=== PATIENT | female | born 1940 | race Caucasian/White ===

== ENCOUNTER 2017-01-09 23:19 | Inpatient (IN) | payer OTHER ==
[~2017-01-09] VITALS: Ht 162.6 cm; Wt 82.0 kg
[~2017-01-09 23:19] MED LIST: BISA10SU54 PR; CYCL-259 PO; DESL5TAB PO; DESO15OI TP; FLUO15CR TP; FURO-92 PO; FURO40TA6 PO; GABA100C8 PO; HYDR28OI3 TP; LIDOCAINE TP; LOSA25TA5 PO; MAGN400O4 PO; MECL12.5 PO; METF-649 PO; METF500T4 PO; OMEP40CA6 PO; OXYC-302 PO; POTA10TA11 PO; SENN-1 PO; TRAZ100T15 PO; TRAZ50TA18 PO; TRIA15OI10 TP; VENL75TA PO; [UNRECOGNIZED DRUG - OTHER]; lasix PO; trazodone PO
[2017-01-10] MEDS ORDERED: SODIUM CHLORIDE FLUSH 10ML SYR IVF ONE
[2017-01-10] MEDS ORDERED: SODIUM CHLORIDE 0.9% 1,000ML IVBOLUS ONE
[2017-01-10 01:19] LABS: ASPARTATE AMINO TRANSFERASE 23 U/L (15-37); BLOOD UREA NITROGEN 19 mg/dL (7-18)
[2017-01-10 01:25] LABS: IS PT STATUS REG ER OR PRE ER? YES
[2017-01-10] MEDS ORDERED: CEFTRIAXONE 1,000 MG in SODIUM CHLORIDE 0.9% 50 ML IV ONE (02:00)
[2017-01-10] MEDS: SODIUM CHLORIDE 0.9% 1,000 ML IV SCH ×2 (02:11→16:21)
[2017-01-10] MEDS ORDERED: CEFTRIAXONE 1,000 MG in SODIUM CHLORIDE 0.9% 50 ML IV SCH (02:30)
[2017-01-10 03:21] VITALS: BP 114/75
[2017-01-10] MEDS: ENOXAPARIN 40 MG/0.4 ML SQ SCH (04:17)
[2017-01-10] MEDS: INSULIN ASPART 100 UNITS/ML, PEN SQ-INSULIN SCH ×4 (08:36→21:00)
[2017-01-10 08:41] VITALS: BP 107/67
[2017-01-10] MEDS: SENNA/DOCUSATE TABLET PO SCH (08:45)
[2017-01-10] MEDS: VENLAFAXINE 75MG TABLET PO SCH ×2 (08:45→23:13)
[2017-01-10] MEDS: POTASSIUM CHLORIDE 20 MEQ TAB.ER.PRT PO SCH (08:45)
[2017-01-10] MEDS: OMEPRAZOLE 20 MG CAPSULE.DR PO SCH (08:46)
[2017-01-10] MEDS: CEFTRIAXONE 1,000 MG in SODIUM CHLORIDE 0.9% 50 ML IV SCH (14:12)
[2017-01-10 14:25] VITALS: BP 113/68
[2017-01-10 15:00] VITALS: BP 116/75
[2017-01-10] MEDS: OXYcodone/APAP 5/325MG TABLET PO PRN ×2 (16:41→23:17)
[2017-01-10 22:00] VITALS: BP 97/62
[2017-01-10] MEDS: GABAPENTIN 100 MG CAPSULE PO SCH (23:13)
[2017-01-11] MEDS: SODIUM CHLORIDE 0.9% 1,000 ML IV SCH (02:00)
[2017-01-11] MEDS: CEFTRIAXONE 1,000 MG in SODIUM CHLORIDE 0.9% 50 ML IV SCH ×2 (02:40→16:35)
[2017-01-11] MEDS: ENOXAPARIN 40 MG/0.4 ML SQ SCH (02:42)
[2017-01-11 02:45] VITALS: BP 115/75
[2017-01-11 06:27] LABS: BLOOD UREA NITROGEN 13 mg/dL (7-18)
[2017-01-11] MEDS: INSULIN ASPART 100 UNITS/ML, PEN SQ-INSULIN SCH ×4 (07:00→21:00)
[2017-01-11 08:41] VITALS: BP 118/72
[2017-01-11] MEDS: VENLAFAXINE 75MG TABLET PO SCH ×2 (08:43→23:02)
[2017-01-11] MEDS: POTASSIUM CHLORIDE 20 MEQ TAB.ER.PRT PO SCH (08:43)
[2017-01-11] MEDS: OXYcodone/APAP 5/325MG TABLET PO PRN ×3 (08:43→23:16)
[2017-01-11] MEDS: OMEPRAZOLE 20 MG CAPSULE.DR PO SCH (08:43)
[2017-01-11] MEDS: SENNA/DOCUSATE TABLET PO SCH (08:43)
[2017-01-11] MEDS ORDERED: OMNIPAQUE 350 MG/ML, 150 ML BOTTLE ONE (10:12)
[2017-01-11 13:21] VITALS: BP 130/79
[2017-01-11] MEDS ORDERED: MAGNESIUM SULFATE PMX 2GM/50ML 50 ML IV ONE (17:30)
[2017-01-11 20:00] VITALS: BP 122/78
[2017-01-11] MEDS: GABAPENTIN 100 MG CAPSULE PO SCH (23:02)
[2017-01-12 01:55] VITALS: BP 101/64
[2017-01-12] MEDS: CEFTRIAXONE 1,000 MG in SODIUM CHLORIDE 0.9% 50 ML IV SCH (02:30)
[2017-01-12] MEDS: ENOXAPARIN 40 MG/0.4 ML SQ SCH (02:30)
[2017-01-12] MEDS: INSULIN ASPART 100 UNITS/ML, PEN SQ-INSULIN SCH ×4 (07:00→21:00)
[2017-01-12 07:07] VITALS: BP 127/80
[2017-01-12] MEDS: OMEPRAZOLE 20 MG CAPSULE.DR PO SCH (09:41)
[2017-01-12] MEDS: SENNA/DOCUSATE TABLET PO SCH (09:42)
[2017-01-12] MEDS: POTASSIUM CHLORIDE 20 MEQ TAB.ER.PRT PO SCH (09:42)
[2017-01-12] MEDS: VENLAFAXINE 75MG TABLET PO SCH ×2 (09:42→21:07)
[2017-01-12 14:00] VITALS: BP 113/74
[2017-01-12] MEDS: AMPICILLIN/SULBACTAM 3 GM in SODIUM CHLORIDE 0.9% 100 ML IV SCH (15:57)
[2017-01-12] MEDS: OXYcodone/APAP 5/325MG TABLET PO PRN (17:19)
[2017-01-12 19:02] VITALS: BP 109/71
[2017-01-12] MEDS: GABAPENTIN 100 MG CAPSULE PO SCH (21:07)
[2017-01-13] MEDS: AMPICILLIN/SULBACTAM 3 GM in SODIUM CHLORIDE 0.9% 100 ML IV SCH ×3 (00:30→17:45)
[2017-01-13 01:13] VITALS: BP 133/83
[2017-01-13] MEDS: OXYcodone/APAP 5/325MG TABLET PO PRN ×3 (01:24→21:08)
[2017-01-13] MEDS: ENOXAPARIN 40 MG/0.4 ML SQ SCH (01:25)
[2017-01-13 04:22] LABS: BLOOD UREA NITROGEN 12 mg/dL (7-18)
[2017-01-13 06:58] VITALS: BP 131/85
[2017-01-13] MEDS: INSULIN ASPART 100 UNITS/ML, PEN SQ-INSULIN SCH ×4 (07:00→21:08)
[2017-01-13] MEDS: SENNA/DOCUSATE TABLET PO SCH (09:00)
[2017-01-13] MEDS: POTASSIUM CHLORIDE 20 MEQ TAB.ER.PRT PO SCH (09:55)
[2017-01-13] MEDS: VENLAFAXINE 75MG TABLET PO SCH ×2 (09:55→21:08)
[2017-01-13] MEDS: OMEPRAZOLE 20 MG CAPSULE.DR PO SCH (09:55)
[2017-01-13] MEDS: ONDANSETRON 2MG/ML, 2ML IVPush PRN ×2 (10:03→21:08)
[2017-01-13 16:34] VITALS: BP 112/73
[2017-01-13 18:55] VITALS: BP 102/66
[2017-01-13] MEDS: GABAPENTIN 100 MG CAPSULE PO SCH (21:08)
[2017-01-14 01:25] VITALS: BP 123/76
[2017-01-14] MEDS: AMPICILLIN/SULBACTAM 3 GM in SODIUM CHLORIDE 0.9% 100 ML IV SCH ×2 (01:56→09:36)
[2017-01-14] MEDS: ENOXAPARIN 40 MG/0.4 ML SQ SCH (01:56)
[2017-01-14] MEDS: OXYcodone/APAP 5/325MG TABLET PO PRN (03:51)
[2017-01-14] MEDS: INSULIN ASPART 100 UNITS/ML, PEN SQ-INSULIN SCH ×4 (07:00→21:00)
[2017-01-14] MEDS: POTASSIUM CHLORIDE 20 MEQ TAB.ER.PRT PO SCH (07:19)
[2017-01-14] MEDS: SENNA/DOCUSATE TABLET PO SCH (07:20)
[2017-01-14] MEDS: VENLAFAXINE 75MG TABLET PO SCH ×2 (07:20→21:07)
[2017-01-14] MEDS: OMEPRAZOLE 20 MG CAPSULE.DR PO SCH (07:20)
[2017-01-14 07:37] VITALS: BP 119/69
[2017-01-14 14:11] VITALS: BP 119/72
[2017-01-14] MEDS ORDERED: BISACODYL 10 MG SUPP PR PRN (17:00)
[2017-01-14] MEDS: POLYETHYLENE GLYCOL 17 GM PACKET PO SCH (17:57)
[2017-01-14 19:09] VITALS: BP 144/84
[2017-01-14] MEDS: AMOXICILLIN/CLAV 875-125MG TABLET PO SCH (21:04)
[2017-01-14] MEDS: GABAPENTIN 100 MG CAPSULE PO SCH (21:05)
[2017-01-15 01:30] VITALS: BP 144/74
[2017-01-15] MEDS: ENOXAPARIN 40 MG/0.4 ML SQ SCH (01:56)
[2017-01-15 06:00] LABS: BLOOD UREA NITROGEN 13 mg/dL (7-18)
[2017-01-15] MEDS: INSULIN ASPART 100 UNITS/ML, PEN SQ-INSULIN SCH ×3 (07:00→17:35)
[2017-01-15 07:13] VITALS: BP 126/77
[2017-01-15] MEDS: OMEPRAZOLE 20 MG CAPSULE.DR PO SCH (08:56)
[2017-01-15] MEDS: VENLAFAXINE 75MG TABLET PO SCH (08:56)
[2017-01-15] MEDS: AMOXICILLIN/CLAV 875-125MG TABLET PO SCH (08:56)
[2017-01-15] MEDS: POTASSIUM CHLORIDE 20 MEQ TAB.ER.PRT PO SCH (08:56)
[2017-01-15] MEDS: POLYETHYLENE GLYCOL 17 GM PACKET PO SCH (08:57)
[2017-01-15] MEDS: SENNA/DOCUSATE TABLET PO SCH (08:57)
[2017-01-15] MEDS ORDERED: AMOX1TAB12 PO (10:09)
[2017-01-15 13:56] VITALS: BP 118/73
== END 2017-01-15 18:30 | DRG 563 ==
LOC: ED 01-10 01:56 → 5SO 01-10 01:57 → ED 01-10 03:00 → 3NE 01-12 13:48
PROVIDERS: ADMIT Internal Medicine
PROC: 0T9B70Z Drainage of Bladder with Drainage Device, Via Natural or Artificial Opening (ICD-10-PCS; principal; 2017-01-10)
DX: S82.52XA Displaced fracture of medial malleolus of left tibia, initial encounter for closed fracture (principal); N39.0 Urinary tract infection, site not specified; J98.11 Atelectasis; D70.9 Neutropenia, unspecified; E86.0 Dehydration; H02.401 Unspecified ptosis of right eyelid; I10 Essential (primary) hypertension; D64.9 Anemia, unspecified; D69.6 Thrombocytopenia, unspecified; E11.9 Type 2 diabetes mellitus without complications; G89.11 Acute pain due to trauma; G89.4 Chronic pain syndrome; H02.402 Unspecified ptosis of left eyelid; M19.90 Unspecified osteoarthritis, unspecified site; B95.2 Enterococcus as the cause of diseases classified elsewhere; W01.0XXA Fall on same level from slipping, tripping and stumbling without subsequent striking against object, initial encounter; I25.2 Old myocardial infarction; Y93.89 Activity, other specified; Y92.009 Unspecified place in unspecified non-institutional (private) residence as the place of occurrence of the external cause; Z86.73 Personal history of transient ischemic attack (TIA), and cerebral infarction without residual deficits; C67.3 Malignant neoplasm of anterior wall of bladder; K57.30 Diverticulosis of large intestine without perforation or abscess without bleeding; N28.1 Cyst of kidney, acquired
CPT/HCPCS: 36415; 71010; 73523; 74178; 76770; 80048; 80053; 81001; 82962; 83036; 83735; 83880; 84443; 84484; 85025; 87077; 87086; 87186; 93005; J0295; J0696; J1650; J1815; J2405; Q9967; J3475; J7030

== ENCOUNTER 2017-02-04 04:45 | Inpatient (IN) | payer OTHER ==
[~2017-02-04] VITALS: Ht 162.6 cm; Wt 74.9 kg
[~2017-02-04 04:45] MED LIST changes: +AMOX1TAB12 PO; +GABA-826 PO; -GABA100C8 PO
[2017-02-04] MEDS ORDERED: SODIUM CHLORIDE 0.9% 1,000 ML IV ONE ×2 (04:59→10:21)
[2017-02-04] MEDS ORDERED: SODIUM CHLORIDE FLUSH 10ML SYR IVF ONE (05:00)
[2017-02-04 06:42] LABS: ASPARTATE AMINO TRANSFERASE 99 U/L (15-37); BLOOD UREA NITROGEN 19 mg/dL (7-18)
[2017-02-04] MEDS ORDERED: ONDANSETRON 2MG/ML, 2ML ONE (07:19)
[2017-02-04] MEDS ORDERED: HYDROmorphone 1 MG/ML, 1ML ONE (07:19)
[2017-02-04 07:22] LABS: DIFF TOTAL CELLS COUNTED 100 CELL DIFF
[2017-02-04 07:27] LABS: ANISOCYTOSIS 1+; MICROCYTOSIS 1+; VERIFY COUNTS? YES
[2017-02-04 07:28] LABS: HYPOCHROMIA 1+
[2017-02-04 07:29] LABS: OVALOCYTES 1+
[2017-02-04] MEDS ORDERED: ONDANSETRON 2MG/ML, 2ML IVPush ONE (07:30)
[2017-02-04] MEDS ORDERED: HYDROmorphone 1 MG/ML, 1ML IVPush PRN (07:30)
[2017-02-04] MEDS ORDERED: SODIUM CHLORIDE FLUSH 10ML SYR IVF PRN (10:30)
[2017-02-04] MEDS ORDERED: POTASSIUM CHLORIDE 20 MEQ TAB.ER.PRT PO ONE ×2 (11:00→13:00)
[2017-02-04] MEDS ORDERED: POTASSIUM CHLORIDE 20 MEQ TAB.ER.PRT ONE (11:13)
[2017-02-04] MEDS ORDERED: GUAIFENESIN/DM 200-20MG, 10ML UDC PO PRN (12:30)
[2017-02-04] MEDS ORDERED: morphine SULFATE 10 MG/ML, 1ML IVPush PRN (12:30)
[2017-02-04] MEDS ORDERED: hydrALAzine 20 MG/ML, 1ML IVPush PRN (12:30)
[2017-02-04] MEDS ORDERED: DOCUSATE 100 MG CAPSULE PO PRN (12:30)
[2017-02-04] MEDS ORDERED: ACETAMINOPHEN 325 MG TABLET PO PRN (12:30)
[2017-02-04] MEDS ORDERED: ONDANSETRON 2MG/ML, 2ML IVPush PRN (12:30)
[2017-02-04] MEDS: SODIUM CHLORIDE 0.9% 1,000 ML IV SCH ×2 (12:59→22:35)
[2017-02-04 13:00] VITALS: BP 122/76
[2017-02-04 13:30] VITALS: BP 114/75
[2017-02-04] MEDS ORDERED: HEPARIN 5,000 UNITS/ML, 1ML SQ SCH (13:30)
[2017-02-04] MEDS: OMEPRAZOLE 20 MG CAPSULE.DR PO SCH (14:19)
[2017-02-04] MEDS: OXYcodone/APAP 5/325MG TABLET PO PRN ×3 (14:20→20:06)
[2017-02-04] MEDS: INSULIN ASPART 100 UNITS/ML, PEN SQ-INSULIN SCH ×2 (16:00→20:10)
[2017-02-04 19:04] VITALS: BP 98/51
[2017-02-04] MEDS: GABAPENTIN 100 MG CAPSULE PO SCH (20:02)
[2017-02-04] MEDS: TRAZODONE 100MG TABLET PO SCH (20:05)
[2017-02-04] MEDS: VENLAFAXINE 75MG TABLET PO SCH (20:05)
[2017-02-05] MEDS: OXYcodone/APAP 5/325MG TABLET PO PRN ×5 (00:44→22:06)
[2017-02-05] MEDS: SODIUM CHLORIDE 0.9% 1,000 ML IV SCH ×2 (06:20→17:04)
[2017-02-05 06:36] LABS: BLOOD UREA NITROGEN 18 mg/dL (7-18)
[2017-02-05] MEDS: INSULIN ASPART 100 UNITS/ML, PEN SQ-INSULIN SCH ×4 (07:00→21:00)
[2017-02-05 08:07] VITALS: BP 98/65
[2017-02-05] MEDS ORDERED: MAGNESIUM SULFATE PMX 4GM/100M 100 ML IV ONE (09:00)
[2017-02-05] MEDS: VENLAFAXINE 75MG TABLET PO SCH ×2 (09:24→20:54)
[2017-02-05] MEDS: OMEPRAZOLE 20 MG CAPSULE.DR PO SCH (09:24)
[2017-02-05] MEDS: IRON SUCROSE COMPLEX 100MG/5ML IV SCH (12:27)
[2017-02-05 13:39] VITALS: BP 107/64
[2017-02-05 19:02] VITALS: BP 112/71
[2017-02-05] MEDS: TRAZODONE 100MG TABLET PO SCH (20:54)
[2017-02-05] MEDS: GABAPENTIN 100 MG CAPSULE PO SCH (20:54)
[2017-02-06 01:05] VITALS: BP 104/54
[2017-02-06] MEDS: SODIUM CHLORIDE 0.9% 1,000 ML IV SCH ×2 (01:28→09:07)
[2017-02-06] MEDS: OXYcodone/APAP 5/325MG TABLET PO PRN ×5 (02:00→23:49)
[2017-02-06 05:39] LABS: BLOOD UREA NITROGEN 10 mg/dL (7-18)
[2017-02-06 05:50] LABS: DIFF TOTAL CELLS COUNTED 50 CELL DIFFERENTIAL; VERIFY COUNTS? YES
[2017-02-06 05:52] LABS: ANISOCYTOSIS 1+; MICROCYTOSIS 1+
[2017-02-06 07:00] VITALS: BP 112/70
[2017-02-06] MEDS: INSULIN ASPART 100 UNITS/ML, PEN SQ-INSULIN SCH ×4 (07:00→21:00)
[2017-02-06] MEDS: MECLIZINE 12.5 MG TABLET PO PRN (09:07)
[2017-02-06] MEDS: OMEPRAZOLE 20 MG CAPSULE.DR PO SCH (09:07)
[2017-02-06] MEDS: VENLAFAXINE 75MG TABLET PO SCH ×2 (09:07→21:09)
[2017-02-06 12:00] VITALS: BP 98/62
[2017-02-06] MEDS: IRON SUCROSE COMPLEX 100MG/5ML IV SCH (12:10)
[2017-02-06] MEDS ORDERED: SODIUM CHLORIDE 0.9% 1,000 ML IV SCH (12:28)
[2017-02-06] MEDS: NEUTRA PHOS K 250 MG TABLET PO SCH ×3 (14:44→21:08)
[2017-02-06 18:46] VITALS: BP 110/67
[2017-02-06] MEDS: TRAZODONE 100MG TABLET PO SCH (21:08)
[2017-02-06] MEDS: GABAPENTIN 100 MG CAPSULE PO SCH (21:08)
[2017-02-07 01:21] VITALS: BP 118/69
[2017-02-07 04:59] LABS: BLOOD UREA NITROGEN 10 mg/dL (7-18)
[2017-02-07 05:52] LABS: DIFF TOTAL CELLS COUNTED 100 CELL DIFF
[2017-02-07 06:07] LABS: ANISOCYTOSIS 1+; VERIFY COUNTS? YES
[2017-02-07 06:08] LABS: MICROCYTOSIS 1+; OVALOCYTES 1+
[2017-02-07] MEDS: INSULIN ASPART 100 UNITS/ML, PEN SQ-INSULIN SCH (07:00)
[2017-02-07 08:08] VITALS: BP 113/67
[2017-02-07] MEDS: OXYcodone/APAP 5/325MG TABLET PO PRN ×2 (09:04→20:11)
[2017-02-07] MEDS: OMEPRAZOLE 20 MG CAPSULE.DR PO SCH (09:05)
[2017-02-07] MEDS: NEUTRA PHOS K 250 MG TABLET PO SCH ×2 (09:05→16:06)
[2017-02-07] MEDS: VENLAFAXINE 75MG TABLET PO SCH ×2 (09:05→20:07)
[2017-02-07] MEDS: MECLIZINE 12.5 MG TABLET PO PRN (09:05)
[2017-02-07] MEDS ORDERED: MAGNESIUM SULFATE PMX 4GM/100M 100 ML IV ONE (11:00)
[2017-02-07] MEDS ORDERED: FUROSEMIDE 20 MG/2 ML IV ONE (11:00)
[2017-02-07] MEDS ORDERED: BISACODYL 10 MG SUPP ONE (11:14)
[2017-02-07] MEDS ORDERED: BISACODYL 10 MG SUPP PR PRN (11:30)
[2017-02-07] MEDS ORDERED: POTASSIUM PHOSPHATE 44 MEQ in SODIUM CHLORIDE 0.9% 500 ML IV ONE (11:30)
[2017-02-07] MEDS: IRON SUCROSE COMPLEX 100MG/5ML IV SCH (11:47)
[2017-02-07 13:59] VITALS: BP 100/64
[2017-02-07 17:08] LABS: OCCBLD OBC PASS
[2017-02-07 18:46] VITALS: BP 123/76
[2017-02-07] MEDS: GABAPENTIN 100 MG CAPSULE PO SCH (20:06)
[2017-02-07] MEDS: TRAZODONE 100MG TABLET PO SCH (20:07)
[2017-02-08 00:57] VITALS: BP 123/75
[2017-02-08 05:14] LABS: BLOOD UREA NITROGEN 11 mg/dL (7-18)
[2017-02-08 06:02] LABS: DIFF TOTAL CELLS COUNTED 100 CELL DIFF
[2017-02-08 06:05] LABS: ANISOCYTOSIS 1+; MICROCYTOSIS 1+; OVALOCYTES 1+
[2017-02-08 06:35] LABS: VERIFY COUNTS? YES
[2017-02-08 07:01] VITALS: BP 98/63
[2017-02-08] MEDS: VENLAFAXINE 75MG TABLET PO SCH ×2 (08:20→21:39)
[2017-02-08] MEDS: OMEPRAZOLE 20 MG CAPSULE.DR PO SCH (08:20)
[2017-02-08] MEDS: NEUTRA PHOS K 250 MG TABLET PO SCH ×3 (09:00→21:39)
[2017-02-08] MEDS ORDERED: FUROSEMIDE 40 MG/4 ML IV ONE (09:30)
[2017-02-08 14:06] VITALS: BP 120/76
[2017-02-08] MEDS: HEPARIN 5,000 UNITS/ML, 1ML SQ SCH (16:58)
[2017-02-08 19:27] VITALS: BP 108/69
[2017-02-08] MEDS: TRAZODONE 100MG TABLET PO SCH (21:39)
[2017-02-08] MEDS: GABAPENTIN 100 MG CAPSULE PO SCH (21:39)
[2017-02-09 01:49] VITALS: BP 113/61
[2017-02-09] MEDS: HEPARIN 5,000 UNITS/ML, 1ML SQ SCH ×3 (02:01→18:23)
[2017-02-09 06:16] LABS: BLOOD UREA NITROGEN 9 mg/dL (7-18)
[2017-02-09 07:31] LABS: DIFF TOTAL CELLS COUNTED 100 CELL DIFF
[2017-02-09 07:37] LABS: VERIFY COUNTS? YES
[2017-02-09 07:40] LABS: ANISOCYTOSIS 1+; MICROCYTOSIS 1+; OVALOCYTES 1+
[2017-02-09 07:46] VITALS: BP 114/73
[2017-02-09] MEDS: VENLAFAXINE 75MG TABLET PO SCH ×2 (09:51→20:19)
[2017-02-09] MEDS: OMEPRAZOLE 20 MG CAPSULE.DR PO SCH (09:52)
[2017-02-09] MEDS: NEUTRA PHOS K 250 MG TABLET PO SCH ×3 (09:52→20:19)
[2017-02-09 13:08] VITALS: BP 136/84
[2017-02-09] MEDS: OXYcodone/APAP 5/325MG TABLET PO PRN (16:58)
[2017-02-09] MEDS: POTASSIUM CHLORIDE 20 MEQ TAB.ER.PRT PO SCH (18:22)
[2017-02-09 18:48] VITALS: BP 108/68
[2017-02-09] MEDS: TRAZODONE 100MG TABLET PO SCH (20:19)
[2017-02-09] MEDS: GABAPENTIN 100 MG CAPSULE PO SCH (20:19)
[2017-02-10 00:26] VITALS: BP 122/73
[2017-02-10 05:38] LABS: BLOOD UREA NITROGEN 8 mg/dL (7-18)
[2017-02-10] MEDS: HEPARIN 5,000 UNITS/ML, 1ML SQ SCH ×3 (06:06→20:00)
[2017-02-10 06:42] VITALS: BP 137/84
[2017-02-10] MEDS: VENLAFAXINE 75MG TABLET PO SCH ×2 (10:10→20:00)
[2017-02-10] MEDS: POTASSIUM CHLORIDE 20 MEQ TAB.ER.PRT PO SCH (10:10)
[2017-02-10] MEDS: OMEPRAZOLE 20 MG CAPSULE.DR PO SCH (10:11)
[2017-02-10 13:06] VITALS: BP 137/77
[2017-02-10 18:37] VITALS: BP 124/76
[2017-02-10] MEDS: OXYcodone/APAP 5/325MG TABLET PO PRN (18:42)
[2017-02-10] MEDS: GABAPENTIN 100 MG CAPSULE PO SCH (20:00)
[2017-02-10] MEDS: TRAZODONE 100MG TABLET PO SCH (20:00)
[2017-02-11] VITALS (9 sets, daily range): BP systolic 115–148; BP diastolic 71–82
[2017-02-11] MEDS: HEPARIN 5,000 UNITS/ML, 1ML SQ SCH ×2 (04:40→13:00)
[2017-02-11 04:58] LABS: BLOOD UREA NITROGEN 8 mg/dL (7-18)
[2017-02-11] MEDS: OXYcodone/APAP 5/325MG TABLET PO PRN ×4 (05:35→23:52)
[2017-02-11 05:51] LABS: DIFF TOTAL CELLS COUNTED 100 CELL DIFF
[2017-02-11 05:57] LABS: VERIFY COUNTS? YES
[2017-02-11 05:58] LABS: ANISOCYTOSIS 1+; HYPOCHROMIA 1+; OVALOCYTES 1+; POLYCHROMASIA 1+
[2017-02-11 05:59] LABS: MICROCYTOSIS 1+; SMALL PLATELETS 1+
[2017-02-11] MEDS: OMEPRAZOLE 20 MG CAPSULE.DR PO SCH (10:17)
[2017-02-11] MEDS: VENLAFAXINE 75MG TABLET PO SCH ×2 (10:17→22:52)
[2017-02-11] MEDS ORDERED: MAGNESIUM SULFATE PMX 2GM/50ML 50 ML IV ONE (14:00)
[2017-02-11] MEDS: GABAPENTIN 100 MG CAPSULE PO SCH (22:51)
[2017-02-11] MEDS: TRAZODONE 100MG TABLET PO SCH (22:52)
[2017-02-12 00:49] VITALS: BP 123/75
[2017-02-12] MEDS: IRON SUCROSE COMPLEX 100MG/5ML IV SCH ×2 (00:51→11:30)
[2017-02-12 01:31] VITALS: BP 116/72
[2017-02-12 05:50] LABS: BLOOD UREA NITROGEN 6 mg/dL (7-18)
[2017-02-12 06:21] LABS: DIFF TOTAL CELLS COUNTED 100 CELL DIFF
[2017-02-12 06:26] LABS: ANISOCYTOSIS 1+; VERIFY COUNTS? YES
[2017-02-12 06:27] LABS: HYPOCHROMIA 1+; POLYCHROMASIA 1+
[2017-02-12 06:28] LABS: OVALOCYTES 1+
[2017-02-12 06:30] VITALS: BP 113/61
[2017-02-12] MEDS: OMEPRAZOLE 20 MG CAPSULE.DR PO SCH (11:30)
[2017-02-12] MEDS: VENLAFAXINE 75MG TABLET PO SCH ×2 (11:30→21:00)
[2017-02-12] MEDS: OXYcodone/APAP 5/325MG TABLET PO PRN ×2 (11:31→19:49)
[2017-02-12 12:38] VITALS: BP 137/73
[2017-02-12 16:01] LABS: CYTOLOGY BODY FLUID RECD INTO PATHOLOGY; CYTOLOGY BODY FLUID SOURCE OTHER - SEE COMMENT
[2017-02-12 19:17] VITALS: BP 119/74
[2017-02-12] MEDS: TRAZODONE 100MG TABLET PO SCH (21:29)
[2017-02-12] MEDS: GABAPENTIN 100 MG CAPSULE PO SCH (21:29)
[2017-02-13 01:03] VITALS: BP 121/72
[2017-02-13] MEDS: OXYcodone/APAP 5/325MG TABLET PO PRN ×2 (04:31→21:00)
[2017-02-13 06:50] VITALS: BP 106/69
[2017-02-13] MEDS: VENLAFAXINE 75MG TABLET PO SCH ×2 (09:00→21:01)
[2017-02-13] MEDS: IRON SUCROSE COMPLEX 100MG/5ML IV SCH (10:36)
[2017-02-13] MEDS: OMEPRAZOLE 20 MG CAPSULE.DR PO SCH (10:37)
[2017-02-13 13:50] VITALS: BP 122/67
[2017-02-13 18:35] VITALS: BP 144/84
[2017-02-13] MEDS: TRAZODONE 100MG TABLET PO SCH (21:01)
[2017-02-13] MEDS: GABAPENTIN 100 MG CAPSULE PO SCH (21:01)
[2017-02-14 03:35] VITALS: BP 109/69
[2017-02-14 07:49] VITALS: BP 115/72
[2017-02-14] MEDS: VENLAFAXINE 75MG TABLET PO SCH ×2 (08:35→20:10)
[2017-02-14] MEDS: OMEPRAZOLE 20 MG CAPSULE.DR PO SCH (08:35)
[2017-02-14] MEDS: IRON SUCROSE COMPLEX 100MG/5ML IV SCH (08:35)
[2017-02-14 11:52] LABS: BLOOD UREA NITROGEN 12 mg/dL (7-18)
[2017-02-14 12:00] VITALS: BP 124/76
[2017-02-14 13:30] LABS: ANA SCREEN NEGATIVE (Negative)
[2017-02-14 18:27] VITALS: BP 123/69
[2017-02-14] MEDS: TRAZODONE 100MG TABLET PO SCH (20:10)
[2017-02-14] MEDS: GABAPENTIN 100 MG CAPSULE PO SCH (20:10)
[2017-02-14] MEDS: OXYcodone/APAP 5/325MG TABLET PO PRN (20:11)
[2017-02-15 00:20] VITALS: BP 130/73
[2017-02-15 08:00] VITALS: BP 115/69
[2017-02-15] MEDS: VENLAFAXINE 75MG TABLET PO SCH (09:00)
[2017-02-15] MEDS: OMEPRAZOLE 20 MG CAPSULE.DR PO SCH (10:46)
[2017-02-15] MEDS: IRON SUCROSE COMPLEX 100MG/5ML IV SCH (10:46)
[2017-02-15 13:22] VITALS: BP 109/67
[2017-02-15] MEDS ORDERED: FERR325T20 PO ×2 (14:56→15:38)
== END 2017-02-15 18:40 | DRG 683 ==
LOC: ED 06:09 → EDIP 10:21 → 3NE 11:33
PROVIDERS: ADMIT Internal Medicine; ATTEND Family Medicine
PROC: 30233N1 Transfusion of Nonautologous Red Blood Cells into Peripheral Vein, Percutaneous Approach (ICD-10-PCS; principal; 2017-02-11)
DX: N17.9 Acute kidney failure, unspecified (principal); M62.82 Rhabdomyolysis; D61.818 Other pancytopenia; C95.90 Leukemia, unspecified not having achieved remission; E87.2 Acidosis; N39.0 Urinary tract infection, site not specified; D50.9 Iron deficiency anemia, unspecified; E11.22 Type 2 diabetes mellitus with diabetic chronic kidney disease; E66.9 Obesity, unspecified; E83.39 Other disorders of phosphorus metabolism; E83.42 Hypomagnesemia; E86.0 Dehydration; E87.6 Hypokalemia; G89.4 Chronic pain syndrome; I12.9 Hypertensive chronic kidney disease with stage 1 through stage 4 chronic kidney disease, or unspecified chronic kidney disease; I25.2 Old myocardial infarction; N18.9 Chronic kidney disease, unspecified; N32.9 Bladder disorder, unspecified; R29.6 Repeated falls; W18.30XA Fall on same level, unspecified, initial encounter; Y92.89 Other specified places as the place of occurrence of the external cause; Z79.4 Long term (current) use of insulin; Z86.73 Personal history of transient ischemic attack (TIA), and cerebral infarction without residual deficits; Z87.891 Personal history of nicotine dependence; Z68.28 Body mass index [BMI] 28.0-28.9, adult; S82.52XA Displaced fracture of medial malleolus of left tibia, initial encounter for closed fracture
CPT/HCPCS: 36415; 70450; 71010; 73523; 80048; 80053; 81001; 82140; 82272; 82550; 82607; 82728; 82962; 83540; 83550; 83605; 83615; 83735; 84100; 85025; 85045; 85610; 85651; 85730; 86038; 86850; 86900; 86923; 87040; 87086; 88112; 93005; 96361; 96374; 96375; J1170; J1644; J1756; J1940; J2405; J3475; J7030; J7040; J7512; P9040

== ENCOUNTER → 2017-05-16 | Outpatient (CLI) | payer OTHER ==
[~2017-05-16] MED LIST changes: +FERR325T18 PO; -MAGN400O4 PO; +MAGN400O7 PO
== END | disposition home or self-care (01) ==
LOC: EDSTATUS 05-14 10:30 → CFH 09:52
PROVIDERS: ATTEND Family Medicine
DX: M85.88 Other specified disorders of bone density and structure, other site (principal); S82.892A Other fracture of left lower leg, initial encounter for closed fracture; N95.9 Unspecified menopausal and perimenopausal disorder; X58.XXXA Exposure to other specified factors, initial encounter; Y93.89 Activity, other specified; Y92.89 Other specified places as the place of occurrence of the external cause; Y99.8 Other external cause status
CPT/HCPCS: 77080

== ENCOUNTER 2018-10-05 19:40 | Emergency (ER) | payer OTHER ==
[~2018-10-05] VITALS: Ht 162.6 cm; Wt 87.0 kg
[~2018-10-05 19:40] MED LIST changes: +LOSA25TA25 PO; -LOSA25TA5 PO; +METF500T17 PO; -METF500T4 PO; -SENN-1 PO; +SENN-92 PO; +TRAZ-137 PO; -TRAZ100T15 PO; -TRAZ50TA18 PO; +TRAZ50TA66 PO
--- NOTE | 2018-10-05 19:40 | NUR ---
BIB EMS AFTER [facility] AT [facility] 1800, PT WITH C/O FEELING "SORE." PT DENIES ANY DIZZINESS/CP/SOB/N/V/D PRIOR TO OR AFTER THE FALL. PT STATES THAT SHE LOST HER BALANCE WHICH CAUSED THE FALL. PT REPORTS CHRONIC LEFT HIP PAIN THAT SHE IS GOING TO PHYSICAL THERAPY FOR, PT ALSO REPORTS B/L LOWER EXTREMITY SWELLING X "WEEKS" AND PAIN TO BOTH LOWER EXTREMITIES WITH SELF DIAGNOSED NEUROPATHY. HX OF DIABETES. FS 505 PER [facility].
--- NOTE | 2018-10-05 19:58 | NUR ---
Dr. Castillo at bedside to evaluate pt.
[2018-10-05] MEDS ORDERED: SODIUM CHLORIDE 0.9% 1,000ML IVBOLUS ONE (20:30)
[2018-10-05] MEDS ORDERED: SODIUM CHLORIDE FLUSH 10ML SYR IVF ONE (20:30)
[2018-10-05 20:37] LABS: ALBUMIN 2.6 g/dL (3.4-5.0); ANION GAP 5 mmol/L (5-15); CALCIUM 8.4 mg/dL (8.5-10.1); CHLORIDE 112 mmol/L (98-107); CREATININE 1.23 mg/dL (0.55-1.02)
[2018-10-05 20:44] LABS: MEAN CORPUSCULAR HEMOGLOBIN 22.7 pg (27.0-34.8); MEAN CORPUSCULAR VOLUME 70.9 fL (80-100); MEAN PLATELET VOLUME 8.4 fL (7.4-10.4); PLATELET COUNT 152 x10^3/uL (130-400); RED BLOOD COUNT 3.63 x10^6/uL (3.82-5.3); RED CELL DISTRIBUTION WIDTH 19.8 % (9.6-15.2)
--- NOTE | 2018-10-05 21:04 | NUR ---
Pt assisted back to bed from commode. Urine sample collected and sent to lab. IVF running. Pt updated on POC.
[2018-10-05 21:26] LABS: BASOPHILS # (AUTO) 0.01 x10^3/uL (0-0.1); BASOPHILS % (AUTO) 0 % (0-1); EOSINOPHILS # (AUTO) 0.05 x10^3/uL (0-0.4); EOSINOPHILS % (AUTO) 2 % (1-7); LYMPHOCYTES # (AUTO) 0.81 x10^3/uL (1-3.4); LYMPHOCYTES % (AUTO) 33 % (22-44); MD SCAN; MONOCYTES # (AUTO) 0.46 x10^3/uL (0.2-0.8); MONOCYTES % (AUTO) 19 % (2-9); NEUTROPHILS # (AUTO) 1.17 x10^3/uL (1.8-6.8); NEUTROPHILS % (AUTO) 47 % (42-75)
[2018-10-05 21:36] LABS: CULTURE INDICATED? YES; MICROSCOPIC INDICATED
--- NOTE | 2018-10-05 22:19 | NUR ---
break rn: pt yelling out for assist to bedside commode. pt up to bedside commode with one person assist. pt stated she usually uses a walker at home for ambulation. pt vss, see charted. pt blood sugar continues to improve. pt back in bed, bilat bedrails up. call light within reach. pt denies any pain at this time. pt sating 92% on ra currently.
--- NOTE | 2018-10-05 22:45 | NUR ---
Pt given ER walker and able to ambulate without additional assistance to the bathroom. Plan to discharge pt to home via taxi discussed with pt and pt states that she feels comfortable with that plan.
[2018-10-05 23:12] VITALS: BP 138/64
--- NOTE | 2018-10-05 23:13 | NUR ---
Patient/Caregiver given discharge instructions and they have confirmed that they understand the instructions. Patient ambulatory with steady gait, using walker. Taxi cab voucher given for safe discharge home. [facility] expecting pt's arrival.
== END 2018-10-05 23:15 | disposition home or self-care (01) ==
LOC: ED 21:34
DX: E11.65 Type 2 diabetes mellitus with hyperglycemia (principal); D50.0 Iron deficiency anemia secondary to blood loss (chronic); I10 Essential (primary) hypertension; I25.2 Old myocardial infarction; Z86.73 Personal history of transient ischemic attack (TIA), and cerebral infarction without residual deficits; W18.39XA Other fall on same level, initial encounter; Y93.01 Activity, walking, marching and hiking; Y92.009 Unspecified place in unspecified non-institutional (private) residence as the place of occurrence of the external cause; Y99.8 Other external cause status
CPT/HCPCS: 36415; 80048; 81001; 82040; 82962; 85025; 87086; 93005; 96360; 99284; J7030